=== PATIENT | male | born 1955 | race Caucasian/White ===

== ENCOUNTER 2017-03-16 18:11 | Emergency (ER) | payer BC ==
[~2017-03-16] VITALS: Ht 190.5 cm; Wt 112.2 kg
[~2017-03-16 18:11] MED LIST: DILT120C PO; LISI40TA PO; RIVA1TAB4 PO
[2017-03-16 18:37] VITALS: TEMP 36.6; Ht 190.5 cm; Wt 112.2 kg
[2017-03-16] MEDS ORDERED: SODIUM CHLORIDE 0.9% 1000ML 500 ML IV STA (18:48)
[2017-03-16] MEDS ORDERED: DILTIAZEM BOLUS / DRIP IV STA (18:48)
[2017-03-16] MEDS ORDERED: SODIUM CHLORIDE 0.9% 1000ML 1,000 ML IV STA (18:48)
[2017-03-16] MEDS ORDERED: DILTIAZEM HCL 5 MG/ML 5 ML VIAL IV SCH (19:00)
[2017-03-16] MEDS ORDERED: DILTIAZEM HCL INJ 125 MG in DEXTROSE 5% 100ML IV PRN (19:00)
[2017-03-16 19:12] LABS: BASO % 0.8 %; BASO ABS # 0.05 K/uL (0-0.2); COMPLETE YES; EOS % 5.1 %; HEMATOCRIT 44.2 % (42-52); IG% 0.2 %; LYMPH % 23.2 %; LYMPH ABS # 1.42 K/uL (1.2-3.4); MEAN CELL VOLUME 94.6 fL (80-100); MEAN CORPUSCULAR HEMOGLOBIN 31.9 pg (25-34); MEAN CORPUSCULAR HGB CONC 33.7 g/dl (32-36); MEAN PLATELET VOLUME 8.8 fL (7.4-10.4); MONO % 8.8 %; NEUT % 61.9 %; PLATELET COUNT 295 K/uL (130-400); RED BLOOD COUNT 4.67 M/uL (4.7-6.1); WHITE BLOOD COUNT 6.13 K/uL (4.8-10.8)
--- NOTE | 2017-03-16 19:21 | EMERGENCY ROOM VISIT NOTE ---
History Report prepared by Elias: Cammie Askew Under the Supervision of: Dr. Bismark Mccall M.D. First contact with patient: 18:41 Chief Complaint: TACHYCARDIA Stated Complaint: ATRIAL FLUTTER, RAPID HEARTBEAT History of Present Illness The patient is a 61 year old male who presents to the Emergency Room with complaints of nearly resolved tachycardia that started 45 minutes [employer]. The patient states that he was at home riding a recumbent exercise bike when he started to feel "strange." He looked down at the pulse monitor on the exercise bike and noticed that his heart rate was very high. He immediately got off of the bike and took 120 mg of diltiazem. He denies chest pain or shortness of breath. He states that he did feel more fatigued during his workout than he usually does. The patient states that he has a history of atrial flutter, but he has only experienced it once in the past. The patient states that he was evaluated for atrial flutter in the ED 1 year ago and he saw Dr. Belcher - Cardiology while he was in the hospital. Dr. Belcher prescribed him the diltiazem and told him to take it whenever he felt his heart go out of rhythm. The patient does not take diltiazem on a regular basis. The patient was prescribed Xarelto after that hospital visit, but he never filled that prescription. He is not on any blood thinners currently. The patient adds that he experienced hypotension over the weekend which is very abnormal for him. He communicated with his PCP who told him to decrease his lisinopril from 40 mg to 20 mg a day. The patient states that he took an extra 20 mg dose of lisinopril today after he noticed the tachycardia to get him up to his previous dose of 40 mg. The patient also states that at the beginning of the month he started to experience a persistent GI virus. His symptoms from the GI virus have just started to resolve over the last week and the patient's diet is slowly improving from the bland diet that he was on. His states that he has lost 15 lbs over the last 3 weeks. He was diagnosed with shingles on his chest and back 10 days after the GI virus started. He is on Valtrex for shingles. The patient's adds that he has been experiencing back pain but the patient states that it is in the area of his shingles rash. The patient states that he has not had any caffeine or alcohol for the past 3 weeks which is unusual for him. The patient states that he follows with a shell plater at [facility] and is scheduled to have an echocardiogram and a sleep study done there to further evaluate the atrial flutter. 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 He is supposed to receive salvage radiation but they want to control his abnormal rhythm before doing that. Source of History: patient, spouse/significant other () Onset: 45 minutes [employer] Position: chest Quality: other (tachycardia) Timing: resolved Modifying Factors (Relieving): other (diltiazem) Associated Symptoms: No chest pain, No SOB Note: increased fatigue Review of Systems See HPI for pertinent positives & negatives. A total of 10 systems reviewed and were otherwise negative. Past Medical & Surgical Medical Problems: (1) Hypertension (2) Prostate cancer (3) Tachycardia Family History Graves' disease FATHER Hypertension MOTHER Social History Smoking Status: Former Smoker Drug Use: none Marital Status: Housing Status: lives with significant other Occupation Status: employed Current/Historical Medications Scheduled Diltiazem Hcl Coated Beads (Diltiazem Hcl Er), 1 CAP PO DAILY Lisinopril (Zestril), 20 MG PO DAILY Probiotic Product (Get10), 1 CAP PO QAM Tadalafil (Cialis), 20 MG PO UD Valacyclovir (Valtrex), 1 TAB PO TID [Florijan Probiotic], 1 TAB PO QPM [Oregeno Oil], 1 APPLN PO BID Allergies Coded Allergies: Iodinated Contrast Media (Verified Allergy, Unknown, ., 03/24/16) Physical Exam Vital Signs Date Time Temp Pulse Resp B/P (MAP) Pulse Ox O2 Delivery O2 Flow Rate FiO2 03/16/17 20:01 140/88 03/16/17 20:00 61 25 95 03/16/17 19:55 135/85 03/16/17 19:41 61 17 94 03/16/17 19:32 119/60 03/16/17 19:22 122/83 03/16/17 19:11 93 18 03/16/17 19:09 93 03/16/17 18:37 36.6 89 16 137/78 96 Room Air Physical Exam GENERAL: Patient is in no acute distress. HEENT: No acute trauma, normocephalic atraumatic, mucous membranes moist, no nasal congestion, no scleral icterus. NECK: No stridor, no adenopathy, no meningismus, trachea is midline. LUNGS: Clear to auscultation bilaterally, no wheeze, no rhonchi, breath sounds equal. HEART: Irregular rhythm with a mildly fast rate, no murmurs. ABDOMEN: Soft, nontender, bowel sounds positive, no hernias, no peritonitis. EXTREMITIES: No cyanosis or edema, full range of motion of all the joints without pain or difficulty, no signs for acute trauma. NEUROLOGIC: Oriented x 3, no acute motor or sensory deficits, no focal weakness. SKIN: No jaundice, shingles rash noted to left chest. Medical Decision & Procedures ER Provider Diagnostic Interpretation: Radiology results as stated below per my review and radiologist interpretation: CHEST ONE VIEW PORTABLE FINDINGS: The bones soft tissues and hemidiaphragms are normal. The cardiomediastinal silhouette is normal. The lungs are clear. The pulmonary vasculature is normal. Minimal chronic atelectatic change left base IMPRESSION: Negative chest. The above report was generated using voice recognition software. It may contain grammatical, syntax or spelling errors. Electronically signed by: Elier Sampson M.D. 03/16/2017 7:21 PM Dictated Date/Time: 03/16/2017 7:21 PM Laboratory Results 03/16/17 19:00 Red Blood Count 4.67, Mean Corpuscular Volume 94.6, Mean Corpuscular Hemoglobin 31.9, Mean Corpuscular Hemoglobin Concent 33.7, Mean Platelet Volume 8.8, Neutrophils (%) (Auto) 61.9, Lymphocytes (%) (Auto) 23.2, Monocytes (%) (Auto) 8.8, Eosinophils (%) (Auto) 5.1, Basophils (%) (Auto) 0.8, Neutrophils # (Auto) 3.80, Lymphocytes # (Auto) 1.42, Monocytes # (Auto) 0.54, Eosinophils # (Auto) 0.31, Basophils # (Auto) 0.05 03/16/17 19:00 Test 03/16/17 19:00 White Blood Count 6.13 K/uL (4.8-10.8) Red Blood Count 4.67 M/uL (4.7-6.1) Hemoglobin 14.9 g/dL (14.0-18.0) Hematocrit 44.2 % (42-52) Mean Corpuscular Volume 94.6 fL (80-100) Mean Corpuscular Hemoglobin 31.9 pg (25-34) Mean Corpuscular Hemoglobin Concent 33.7 g/dl (32-36) Platelet Count 295 K/uL (130-400) Mean Platelet Volume 8.8 fL (7.4-10.4) Neutrophils (%) (Auto) 61.9 % Lymphocytes (%) (Auto) 23.2 % Monocytes (%) (Auto) 8.8 % Eosinophils (%) (Auto) 5.1 % Basophils (%) (Auto) 0.8 % Neutrophils # (Auto) 3.80 K/uL (1.4-6.5) Lymphocytes # (Auto) 1.42 K/uL (1.2-3.4) Monocytes # (Auto) 0.54 K/uL (0.11-0.59) Eosinophils # (Auto) 0.31 K/uL (0-0.5) Basophils # (Auto) 0.05 K/uL (0-0.2) RDW Standard Deviation 44.7 fL (36.4-46.3) RDW Coefficient of Variation 13.1 % (11.5-14.5) Immature Granulocyte % (Auto) 0.2 % Immature Granulocyte # (Auto) 0.01 K/uL (0.00-0.02) Anion Gap 5.0 mmol/L (3-11) Est Creatinine Clear Calc Drug Dose 109.2 ml/min Estimated GFR () 98.5 Estimated GFR (Non- 85.0 BUN/Creatinine Ratio 14.6 (10-20) Calcium Level 8.4 mg/dl (8.5-10.1) Magnesium Level 2.0 mg/dl (1.8-2.4) Total Bilirubin 0.3 mg/dl (0.2-1) Aspartate Amino Transf (AST/SGOT) 16 U/L (15-37) Alanine Aminotransferase (ALT/SGPT) 38 U/L (12-78) Alkaline Phosphatase 74 U/L (45-117) Troponin I 0.016 ng/ml (0-0.045) Total Protein 6.3 gm/dl (6.4-8.2) Albumin 3.2 gm/dl (3.4-5.0) Globulin 3.1 gm/dl (2.5-4.0) Albumin/Globulin Ratio 1.0 (0.9-2) Thyroid Stimulating Hormone (TSH) 2.280 uIu/ml (0.300-4.500) Laboratory results reviewed by me. Medications Administered Medications (Trade) Dose Ordered Sig/Enmanuel Route Start Time Stop Time Status Last Admin Dose Admin Sodium Chloride 500 ml @ 999 mls/hr Q31M STAT IV 03/16/17 18:48 03/16/17 19:18 DC 03/16/17 19:16 999 MLS/HR Sodium Chloride 1,000 ml @ 200 mls/hr Q5H STAT IV 03/16/17 18:48 03/16/17 23:47 03/16/17 19:16 200 MLS/HR Diltiazem HCl (Cardizem Bolus / Drip) 1 ea NOW STAT IV 03/16/17 18:48 03/16/17 18:55 DC 03/16/17 18:48 1 EA Diltiazem HCl (Cardizem Inj) 5 mg TODAY@1900 IV 03/16/17 19:00 03/16/17 19:03 DC 03/16/17 19:19 5 MG Diltiazem HCl 125 mg/Dextrose 125 ml @ 5 mls/hr Q24H PRN IV 03/16/17 19:00 04/15/17 18:59 03/16/17 19:18 5 MLS/HR ECG Indication: tachycardia Rate (beats per minute): 87 Rhythm: atrial fibrillation Findings: nonspecific-ST abn (diffuse), PVC, other (LVH) Change: Second EKG on 03/16/2017 revealed sinus bradycardia, rate of 59, LVH, no acute ischemic changes, no dysrhythmia. ED Course 1841: The patient was evaluated in room C10. A complete history and physical exam was performed. 1847: Ordered Diltiazem HCl 1 ea IV, Sodium Chloride 1000 ml @ 200 mls/hr IV, Sodium Chloride 500 ml @ 999 mls/hr IV 1900: Ordered Diltiazem HCl 125 ml @ 5 mls/hr Protocol IV, Diltiazem HCl 5 mg IV 1956: I reassessed the patient. He is now in a sinus rhythm and feels fine. I am going to repeat an EKG to verify that his rhythm has improved and consult cardiology. 2001: Discussed the patient's case with Dr. Sunshine Foote. He is in agreement with discharging the patient. He is able to see the patient this week in clinic. 2006: Reevaluated the patient. Discussed results and discharge instructions: he verbalized understanding and agreement. The patient is ready for discharge. Medical Decision Differential diagnoses considered include rapid atrial fibrillation or atrial flutter, SVT, electrolyte imbalance, dehydration, anemia, infection, AL. There is no leukocytosis or concerning anemia. No significant electrolyte abnormality, kidney failure, hepatitis. The patient appears to be in a euthyroid state. Chest x-ray does not show CHF or pneumonia. There was no significant mediastinal widening. EKG showed a rapid A. fib, no acute ischemia. Cardiac enzyme testing times one is not consistent with acute cardiac injury. The patient received a 500 mL saline bolus. He was given an IV bolus of diltiazem and then placed on a drip. Within a short time, he did convert to a sinus rhythm as confirmed by repeat EKG. The diltiazem was stopped. I discussed the case with cardiology. The patient is being discharged with outpatient follow-up this week. He will not change his medications. The patient can return here for any return of symptoms. The rapid A. fib has resolved. Medication Reconcilliation Current Medication List: was personally reviewed by me Blood Pressure Screening Patient's blood pressure: Elevated blood pressure Blood pressure disposition: Elevated BP felt to be situational Consults Time Called: 1957 Consulting Physician: Dr. Sunshine Foote Returned Call: 2001 Discussed the patient's case with Dr. Sunshine Foote. He is in agreement with discharging the patient. He is able to see the patient this week in clinic. Impression Primary Impression: Rapid atrial fibrillation Scribe Attestation The scribe's documentation has been prepared under my direction and personally reviewed by me in its entirety. I confirm that the note above accurately reflects all work, treatment, procedures, and medical decision making performed by me. Departure Information Dispostion Home / Self-Care Referrals No Doctor, Assigned (PCP) Forms HOME CARE DOCUMENTATION FORM, IMPORTANT VISIT INFORMATION, WORK / SCHOOL INSTRUCTIONS Patient Instructions My [facility] Additional Instructions call to set up appt with cardiology this week use the Diltiazem for rapid heart rate as before return if worsening lab testing today was all ok
--- NOTE | 2017-03-16 19:22 | DIAGNOSTIC IMAGING REPORT ---
CHEST ONE VIEW PORTABLE CLINICAL HISTORY: EVALUATE ALTERED MENTAL STATUS/WEAKNESS COMPARISON STUDY: No previous studies for comparison. FINDINGS: The bones soft tissues and hemidiaphragms are normal. The cardiomediastinal silhouette is normal. The lungs are clear. The pulmonary vasculature is normal. Minimal chronic atelectatic change left base IMPRESSION: Negative chest. The above report was generated using voice recognition software. It may contain grammatical, syntax or spelling errors. Electronically signed by: Elier Sampson M.D. 03/16/2017 7:21 PM Dictated Date/Time: 03/16/2017 7:21 PM
[2017-03-16] MEDS ORDERED: [UNRECOGNIZED DRUG - OTHER] PO (19:36)
[2017-03-16] MEDS ORDERED: VALA500T60 PO (19:36)
[2017-03-16] MEDS ORDERED: [UNRECOGNIZED DRUG - OTHER] PO (19:36)
[2017-03-16] MEDS ORDERED: PROBCAP PO (19:36)
[2017-03-16 19:39] LABS: BUN/CREATININE RATIO 14.6 (10-20); CALCIUM 8.4 mg/dl (8.5-10.1); CREATININE 0.96 mg/dl (0.60-1.40); POTASSIUM 4.4 mmol/L (3.5-5.1)
[2017-03-16 19:50] LABS: THYROID STIMULATING HORMONE 2.28 uIu/ml (0.300-4.500)
[2017-03-16 20:00] VITALS: PULSE 61; O2SAT 95
[2017-03-16 20:01] VITALS: BP 140/88
[2017-03-16] MEDS ORDERED: TADA20TA PO (22:49)
== END 2017-03-16 20:30 | disposition home or self-care (01) ==
LOC: C.EDB 18:13 → C.EDC 20:30
DX: I48.91 Unspecified atrial fibrillation (principal); I10 Essential (primary) hypertension; Z85.46 Personal history of malignant neoplasm of prostate; Z83.49 Family history of other endocrine, nutritional and metabolic diseases; Z82.49 Family history of ischemic heart disease and other diseases of the circulatory system; Z87.891 Personal history of nicotine dependence; Z79.899 Other long term (current) drug therapy

== ENCOUNTER 2020-04-25 11:43 | Observation (INO) ==
[2020-04-25 12:26] LABS: Basophils # (auto) 0.02 K/uL (0-0.2); Basophils % (auto) 0.4 %; Eosinophils # (auto) 0.19 K/uL (0-0.5); Eosinophils % (auto) 3.5 %; Hematocrit (blood only) 45.3 % (42-52); Hemoglobin 15.7 g/dL (14.0-18.0); Lymphocytes % (auto) 27.6 %; Mean Corpuscular Hemoglobin 34.1 pg (25-34); Mean Corpuscular Hgb Conc 34.7 g/dL (32-36); Mean Corpuscular Volume 98.5 fL (80-100); Mean Platelet Volume 9.6 fL (7.4-10.4); Monocytes # (auto) 0.53 K/uL (0.11-0.59); Monocytes % (auto) 9.7 %; Neutrophils % (auto) 58.8 %; Platelet Count 222 K/uL (130-400); RDW Coefficient of Variation 13.3 % (11.5-14.5); RDW Standard Deviation 47.9 fL (36.4-46.3); White Blood Count 5.44 K/uL (4.8-10.8)
[2020-04-25 12:38] LABS: INR 1.4 (0.9-1.1); Partial Thromboplastin Ratio 1.3; Partial Thromboplastin Time 34.9 Seconds (21.0-31.0); Prothrombin Time 14.1 Seconds (9.0-12.0)
[2020-04-25 12:48] LABS: Albumin Level 3.8 gm/dl (3.4-5.0); BUN Creatinine Ratio 14.2 (10-20); Calcium 8.4 mg/dl (8.5-10.1); Creatinine Clr Calc Pharmacy 105.9 ml/min; Est GFR (African American) 107.2; Est GFR (Non-African American) 92.5; Potassium 4.1 mmol/L (3.5-5.1)
[2020-04-25] MEDS ORDERED: STAT IV Infusion **Titration per Protocol STA (12:48)
[2020-04-25] MEDS ORDERED: dilTIAZem HCl 5 MG/ML 5 ML VIAL IV STA (12:48)
--- NOTE | 2020-04-25 12:48 | Emergency Department Note ---
Impression & Plan Atrial fibrillation with rapid ventricular response, Hypertension, Heart palpitations ED Provider Note NAME: CAROL BAIG AGE: 64 SEX: M : 1955 ARRIVES VIA: Walk-In INFORMANT: Patient ED PROVIDER(S): Saul Snow DO CHIEF COMPLAINT: Afib RVR HPI: Patient is a 64-year-old male with a past medical history of prostate cancer, hypertension and A. fib/flutter. He notes he has had about 3-4 episodes of A. fib a flutter before in the past. He notes he woke up this morning around 1 in the morning and noticed that his heart was racing. Last night before going to bed he was not in A. fib. He denies any chest pain or shortness of breath. No nausea, vomiting or diarrhea. No dysuria, urgency or frequency. No other exacerbating or remitting factors. He does take rivaroxaban has not missed any doses. He was in contact with his para educator who recommended him taking diltiazem and he took 240 mg ER. Heart rate did not increase until after 9 AM. ROS: See above HPI for pertinent positives & negatives. A total of 10 systems reviewed and were otherwise negative. PAST MEDICAL HISTORY:See Below PAST SURGICAL HISTORY:See Below FAMILY HISTORY:See Below SOCIAL HISTORY:See Below HOME MEDICATIONS:See Below ALLERGIES:See Below VITALS:See Below PHYSICAL EXAMINATION: GENERAL: Sitting up in bed, alert, well appearing, well nourished, no distress, non-toxic EYE EXAM: normal conjunctiva. OROPHARYNX: no exudate, no erythema, lips, buccal mucosa, and tongue normal and mucous membranes are moist NECK: supple, no nuchal rigidity, no adenopathy, non-tender LUNGS: Clear to auscultation. Normal chest wall mechanics HEART: A. fib RVR, S1 normal and S2 normal ABDOMEN: abdomen soft, non-tender, normo-active bowel sounds, no masses, no rebound or guarding. BACK: Back is symmetrical on inspection and there is no deformity, no midline tenderness, no CVA tenderness. SKIN: no rashes and no bruising UPPER EXTREMITIES: upper extremities are grossly normal. LOWER EXTREMITIES: No pitting edema. NEURO EXAM: Normal sensorium, cranial nerves II-XII grossly intact, normal speech, no gross weakness of arms, no gross weakness of legs. MEDICAL DECISION MAKING: Patient is a 64-year-old male who presents the ER for palpitations. Past medical history includes A. fib. He notes that he feels as though he is in it now. He has been shocked once before. He did take 240 mg of Cardizem ER earlier today in discussion with his para educator. Labs show no significant leukocytosis or anemia. INR was slightly elevated at 1.4 as he has not missed any doses of his Eliquis. BMP with an elevated chloride. LFTs bilirubin and troponin was negative. Lipase was unremarkable. Chest x-ray was unremarkable. Discussed with the hospitalist for admission after placement was placed on a Cardizem drip and Cardizem bolus. They consulted cardiology. His heart rate trended down to the 50s to 60s. Cardiology recommended cardioversion after they evaluated him at bedside. I sedated the patient and cardiology shocked the patient twice. Patient Reverted into a sinus rhythm both times and then converted back to A. fib. After this sedation was stopped and patient woke back up. Cardiology decided to admit the patient to the hospitalist and further work-up. Turned off the Cardizem drip prior to shocking the patient and will hold that drip until his heart rate trends back up. Triage Nursing notes reviewed. Prior medical records reviewed Vital Signs: reviewed and remarkable for Tachycardic Differential diagnosis: Differential diagnoses includes but is not limited to acute coronary syndrome, myocardial infarction, pericarditis, pulmonary embolus, aortic dissection, pneum onia, pneumothorax, musculoskeletal, shingles, esophageal. ER treatment provided: See below Diagnostics interpreted by me: ECG: A. fib RVR rate of 129 Normal axis Prolonged QTC T WI in lead III Cardiac Monitoring: An order was placed for continuous cardiac monitoring. The monitor shows a rate of 130 with sinus rhythm. Laboratory studies: As stated above and show below. Imaging studies: Audible AP upright 1 view of the chest shows no focal infiltrate or pneumothorax Consultation(s): Discussed with Gallito Rivas for admission Discussed with Derrick Corbin from cardiology ED COURSE: Procedures: Procedural Sedation Indication Cardioversion. Total time: 11 minutes. Written consent was obtained after the risks and benefits were explained to the Patient, including, but not limited to aspiration, allergic reaction, breathing difficulties, cardiac complications, vomiting, pain, event recall, bleeding, and/or infection. Pre-sedation examination and paperwork completed. The patient was on 100% oxygen via NRB prior to the procedure. Continous end tidal CO2 monitoring, pulse oximetry, and cardiac monitoring were utilized. Suction, airway equipment, medications, respiratory equipment, and appropriate personnel were prepared prior to the initiation of the procedure. A time out was taken. Sedation was achieved utilizing 180 mg of propofol by titrating up. After I observed the patient had reached the appropriate level of sedation the main procedure was performed without complication. Sedation was discontinued and the monitoring continued. The patient recovered quickly from the effects of the medication without complication or adverse event. Critical Care: I have personally spent 55 minutes of critical care time in the direct management of this patient. This includes bedside care, interpretation of diagnostic studies, and testing, discussion with consultants, patient, and family members, and other required patient management activities. This 55 minutes is in excess of all separately billable procedures. Past Med/Surg History Social History Smoking Status: Former smoker Preferred Language: Liberian Feels Safe at Home: Yes Allergies Allergies Allergy/AdvReac Type Severity Reaction Status Date / Time Iodinated Contrast Media Allergy Unknown . Verified 04/25/20 14:18 Home Meds Home Medications Medication Instructions Recorded Confirmed lisinopril 20 mg PO QAM 04/25/20 04/25/20 rivaroxaban [Xarelto] 20 mg PO QAM 04/25/20 04/25/20 rosuvastatin 40 mg PO QAM 04/25/20 04/25/20 tadalafil 20 mg PO UD PRN 04/25/20 04/25/20 Results & Data (ED) Vital Signs Vital Signs - 24 hr 04/25/20 12:03 04/25/20 12:34 04/25/20 12:57 Temperature 37 C Temperature Source Oral Pulse Rate 76 100 H Pulse Rate [Apical] Pulse Rate from SpO2 Sensor Pulse Rhythm Regular Pulse Rhythm [Apical] Pulse Strength Normal Pulse Strength [Apical] Respiratory Rate 20 16 Respiratory Effort / Characteristics Non-Labored Spontaneous Respiratory Depth Normal Respiratory Pattern Regular Blood Pressure 172/118 H 192/114 H Blood Pressure [Right Arm] Blood Pressure Mean 136 140 Blood Pressure Mean [Right Arm] Blood Pressure Position Sitting Blood Pressure Position [Right Arm] Pulse Oximetry 96 96 96 Oxygen Delivery Method Room Air Room Air Oxygen Flow Rate Sepsis Recent Fever Within 48 Hours No Sepsis New/Unexplained Change in Mental Status No Sepsis Action Taken by Nursing No Action Required 04/25/20 12:58 04/25/20 13:00 04/25/20 13:01 Temperature Temperature Source Pulse Rate 108 H 116 H 113 H Pulse Rate [Apical] Pulse Rate from SpO2 Sensor 93 H 93 H 84 Pulse Rhythm Pulse Rhythm [Apical] Pulse Strength Pulse Strength [Apical] Respiratory Rate 20 24 17 Respiratory Effort / Characteristics Respiratory Depth Respiratory Pattern Blood Pressure 192/114 H 152/117 H Blood Pressure [Right Arm] Blood Pressure Mean 130 134 Blood Pressure Mean [Right Arm] Blood Pressure Position Blood Pressure Position [Right Arm] Pulse Oximetry 95 96 Oxygen Delivery Method Oxygen Flow Rate Sepsis Recent Fever Within 48 Hours Sepsis New/Unexplained Change in Mental Status Sepsis Action Taken by Nursing 04/25/20 13:30 04/25/20 13:31 04/25/20 14:00 Temperature Temperature Source Pulse Rate 75 75 76 Pulse Rate [Apical] Pulse Rate from SpO2 Sensor 74 74 76 Pulse Rhythm Pulse Rhythm [Apical] Pulse Strength Pulse Strength [Apical] Respiratory Rate 21 18 21 Respiratory Effort / Characteristics Respiratory Depth Respiratory Pattern Blood Pressure 161/115 H 163/111 H Blood Pressure [Right Arm] Blood Pressure Mean 125 123 Blood Pressure Mean [Right Arm] Blood Pressure Position Blood Pressure Position [Right Arm] Pulse Oximetry 95 95 94 Oxygen Delivery Method Room Air Room Air Oxygen Flow Rate Sepsis Recent Fever Within 48 Hours Sepsis New/Unexplained Change in Mental Status Sepsis Action Taken by Nursing 04/25/20 14:01 04/25/20 14:30 04/25/20 14:31 Temperature Temperature Source Pulse Rate 76 75 75 Pulse Rate [Apical] Pulse Rate from SpO2 Sensor 76 75 75 Pulse Rhythm Pulse Rhythm [Apical] Pulse Strength Pulse Strength [Apical] Respiratory Rate 19 23 23 Respiratory Effort / Characteristics Respiratory Depth Respiratory Pattern Blood Pressure 162/113 H Blood Pressure [Right Arm] Blood Pressure Mean 125 Blood Pressure Mean [Right Arm] Blood Pressure Position Blood Pressure Position [Right Arm] Pulse Oximetry 94 95 96 Oxygen Delivery Method Oxygen Flow Rate Sepsis Recent Fever Within 48 Hours Sepsis New/Unexplained Change in Mental Status Sepsis Action Taken by Nursing 04/25/20 15:00 04/25/20 15:01 04/25/20 15:07 Temperature Temperature Source Pulse Rate 76 79 75 Pulse Rate [Apical] 74 Pulse Rate from SpO2 Sensor 76 75 74 Pulse Rhythm Pulse Rhythm [Apical] Regular Pulse Strength Pulse Strength [Apical] Normal Respiratory Rate 15 24 21 Respiratory Effort / Characteristics Non-Labored Spontaneous Respiratory Depth Normal Respiratory Pattern Regular Blood Pressure 186/111 H 168/104 H Blood Pressure [Right Arm] 168/104 H Blood Pressure Mean 142 115 Blood Pressure Mean [Right Arm] 125 Blood Pressure Position Blood Pressure Position [Right Arm] Lying Pulse Oximetry 96 96 99 Oxygen Delivery Method Non-rebreather Oxygen Flow Rate 13 Sepsis Recent Fever Within 48 Hours Sepsis New/Unexplained Change in Mental Status Sepsis Action Taken by Nursing 04/25/20 15:30 Temperature Temperature Source Pulse Rate Pulse Rate [Apical] 54 L Pulse Rate from SpO2 Sensor Pulse Rhythm Pulse Rhythm [Apical] Irregular Pulse Strength Pulse Strength [Apical] Normal Respiratory Rate 18 Respiratory Effort / Characteristics Non-Labored Spontaneous Respiratory Depth Normal Respiratory Pattern Regular Blood Pressure Blood Pressure [Right Arm] 126/95 Blood Pressure Mean Blood Pressure Mean [Right Arm] 105 Blood Pressure Position Blood Pressure Position [Right Arm] Lying Pulse Oximetry 95 Oxygen Delivery Method Room Air Oxygen Flow Rate Sepsis Recent Fever Within 48 Hours Sepsis New/Unexplained Change in Mental Status Sepsis Action Taken by Nursing Laboratory Data Result diagrams: 04/25/20 12:16 04/25/20 12:16 Lab Results 04/25/20 04/25/20 04/25/20 Range/Units 12:16 12:16 12:16 WBC 5.44 (4.8-10.8) K/uL RBC 4.60 L (4.7-6.1) M/uL Hgb 15.7 (14.0-18.0) g/dL Hct 45.3 (42-52) % MCV 98.5 (80-100) fL MCH 34.1 H (25-34) pg MCHC 34.7 (32-36) g/dL RDW Std Deviation 47.9 H (36.4-46.3) fL RDW Coeff of Michi 13.3 (11.5-14.5) % Plt Count 222 (130-400) K/uL MPV 9.6 (7.4-10.4) fL Immature Gran % (Auto) 0.0 % Neut % (Auto) 58.8 % Lymph % (Auto) 27.6 % [place] % (Auto) 9.7 % Eos % (Auto) 3.5 % Baso % (Auto) 0.4 % Neut # (Auto) 3.20 (1.4-6.5) K/uL Lymph # (Auto) 1.50 (1.2-3.4) K/uL [place] # (Auto) 0.53 (0.11-0.59) K/uL Eos # (Auto) 0.19 (0-0.5) K/uL Baso # (Auto) 0.02 (0-0.2) K/uL Immature Gran # (Auto) 0.00 (0.00-0.02) K/uL PT 14.1 H (9.0-12.0) Seconds INR 1.4 H (0.9-1.1) APTT 34.9 H (21.0-31.0) Seconds PTT Ratio 1.3 Sodium 140 (136-145) mmol/L Potassium 4.1 (3.5-5.1) mmol/L Chloride 108 H (98-107) mmol/L Carbon Dioxide 26 (21-32) mmol/L Anion Gap 6.0 (3-11) BUN 12 (7-18) mg/dl Creatinine 0.84 (0.6-1.4) mg/dl Est Cr Clr Drug Dosing 105.9 ml/min Est GFR ( Amer) 107.2 Est GFR (Non-Af Amer) 92.5 BUN/Creatinine Ratio 14.2 (10-20) Glucose 96 (70-99) mg/dl Calcium 8.4 L (8.5-10.1) mg/dl Total Bilirubin 0.8 (0.2-1) mg/dl AST 17 (15-37) U/L ALT 22 (12-78) U/L Alkaline Phosphatase 67 (45-117) U/L Troponin I 0.018 (0-0.045) ng/ml Total Protein 7.2 (6.4-8.2) gm/dl Albumin 3.8 (3.4-5.0) gm/dl Globulin 3.4 (2.5-4.0) gm/dl Albumin/Globulin Ratio 1.1 (0.9-2) Lipase 108 (73-393) U/L Administered Medications Diltiazem HCl 125 mg/ Dextrose 125 mls @ 5 mls/hr IV .Q24H [facility]; Protocol Stop: 05/25/20 12:59 Last Admin: 04/25/20 13:12 Dose: 5 mg/hr, 5 mls/hr Documented by: [id number] Cosigned by: [id number] Discontinued Medications Diltiazem HCl (Diltiazem Hcl 5 Mg/Ml 5 Ml Vial) 10 mg IV NOW STA Stop: 04/25/20 12:49 Last Admin: 04/25/20 13:11 Dose: 10 mg Documented by: [id number] Cosigned by: [id number] Miscellaneous (Stat Iv Infusion Titration Per Protocol) 1 ea N/A NOW STA Stop: 04/25/20 12:49 Last Admin: 04/25/20 13:27 Dose: Not Given Documented by: [id number] Propofol (Propofol Iv Emulsion 10 Mg/Ml 20 Ml Vial) Confirm Administered Dose 200 mg IV .STK-MED ONE Stop: 04/25/20 15:05 Last Admin: 04/25/20 15:46 Dose: 180 mg Documented by: [id number] Cosigned by: [id number] Discharge Plan Visit Data Chief Complaint: Arrhythmia/Palpitations Stated Complaint: A FIB - ELEVATED PULSE IRREGULAR HEARTBEAN ED Provider: Saul Snow Discharge Problem: Atrial fibrillation with rapid ventricular response, Hypertension, Heart palpitations Forms Stand Alone Forms: [facility] Prescriptions Prescriptions: No Action lisinopril 20 mg tablet 20 mg PO QAM RF: 0 rosuvastatin 40 mg tablet 40 mg PO QAM RF: 0 tadalafil 20 mg tablet 20 mg PO UD PRN (Reason: Erectile Dysfunction) RF: 0 Xarelto 20 mg tablet 20 mg PO QAM RF: 0 Discharge Problem: Hypertension Qualifiers: Hypertension type: unspecified Qualified Code(s): I10 - Essential (primary) hypertension
[2020-04-25 12:53] LABS: Albumin Globulin Ratio 1.1 (0.9-2); Bilirubin,Total 0.8 mg/dl (0.2-1); Globulin 3.4 gm/dl (2.5-4.0); Total Protein 7.2 gm/dl (6.4-8.2); Troponin I 0.018 ng/ml (0-0.045)
[2020-04-25] MEDS ORDERED: dilTIAZem HCL 125 MG in DEXTROSE 5% 100 ML IV SCH (13:00)
--- NOTE | 2020-04-25 13:25 | XRay Report ---
SINGLE VIEW CHEST CLINICAL HISTORY: Atypical chest pain. FINDINGS: An AP, portable, upright chest radiograph is compared to study dated 03/16/2017. The examina tion is mildly degraded by portable technique and patient rotation. The heart is mildly enlarged. The pulmonary vasculature is noncongested. Minimal atelectasis is noted at the lung bases. The lungs and pleural spaces are otherwise clear. No pneumothorax is seen. The bony thorax is grossly intact. IMPRESSION: Mild cardiac enlargement with no acute cardiopulmonary abnormality. ACT 112: Negative or not required by law. Electronically signed by: Bismark Bravo M.D. 04/25/2020 1:24 PM
--- NOTE | 2020-04-25 13:52 | Electrocardiogram Report ---
Test Reason : Blood Pressure : / mmHG Vent. Rate : 129 BPM Atrial Rate : 293 BPM P-R Int : 000 ms QRS Dur : 090 ms QT Int : 382 ms P-R-T Axes : 206 -04 209 degrees QTc Int : 559 ms Atrial flutter with variable A-V block Nonspecific ST and T wave abnormality Abnormal ECG When compared with ECG of 16-MAR-2017 20:01, Atrial flutter has replaced Sinus rhythm Vent. rate has increased BY [address] and T wave abnormality now present Confirmed by Chano Corbin ([id number]) on 04/25/2020 1:52:31 PM Referred By: Confirmed By:Chano Corbin
--- NOTE | 2020-04-25 14:23 | History & Physical Report ---
Date of Service April 25, 2020 Assessment & Plan (1) Atrial fibrillation with rapid ventricular response: Patient is in atrial flutter in ER where he had attempted DC cardioversion with low energy. This resulted in atrial fib conversion. Patient then had a higher energy conversion of atrial fib which resulted in a brief run of sinus rhythm and then returned to atrial fib. Patient however has good rate control in the 50s and 60s he remains on Xarelto no other active rate controlling agents are being used. The patient did take 240 mg of diltiazem extended release in the morning of admission. Dr. Corbin's note the patient could go home if he is rate controlled in the morning as long as he is on atrial flutter. If he is in atrial flutter he will need to stay. If he is in sinus rhythm or atrial fib and is high blood pressure consideration of continuing diltiazem on a daily basis could be undertaken if his. If his blood pressure is low or normal and he is in atrial fib consideration of a beta-anna. (2) Hypertension: Patient has been on lisinopril with typically good control of his blood pressure. Lisinopril was continued at this time Patient remains on rosuvastatin for secondary disease prevention of cholesterol Management (3) Prostate cancer: (4) DVT prophylaxis: Remains on Xarelto History of Present Illness Primary Care Provider: NICKOLAS FLORES 64-year-old male with a past medical history of prostate cancer, hypertension and A. fib/flutter. He notes he has had about 3-4 episodes of A. fib a flutter before in the past. He notes he woke up this morning around 1 in the morning and noticed that his heart was racing. Last night before going to bed he was no t in A. fib. He denies any chest pain or shortness of breath. No nausea vomiting or diarrhea. No dysuria urgency or frequency. No other exacerbating or remitting factors. He does take rivaroxaban has not missed any doses. He was in contact with his cooling tower technician who recommended him taking diltiazem and he took 240 mg ER. Patient had no relief with the Cardizem 240 presented to the ER with atrial flutter rapid ventricular response. Patient was placed on a diltiazem drip with some good reduction in his heart rate however remained in a flutter. I personally phoned Dr. Derrick Corbin and over the case with him and the decision was made to attempt to DC cardiovert the patient to resume sinus rhythm since he is chronically anticoagulated have patient go home. However the patient initially converted from flutter to atrial fibrillation and then from atrial fibrillation to sinus briefly but remained in atrial fibrillation with controlled ventricular rate. Because of the variability his heart rate controlled patient was recommended for observation of facility. Diltiazem drip was not continued with his Xarelto was. Patient with PRN metoprolol for elevation of heart rate Dr. Corbin did phone the patient's cooling tower technician and left a message. Per Dr. Corbin's instructions the patient may go home in the morning if heart rate is controlled whether he is in sinus rhythm or not with the exception is that if he returns a flutter that he should stay outside of his heart rate. If the patient has an elevated blood pressure and control heart rate whether sinus or A. fib heart is it may be a good choice to control his blood pressure. If the patient is in A. fib with controlled blood pressure metoprolol may be a better choice. If patient remains in atrial flutter he will likely have to stay for consideration of further antiarrhythmic medication cardiology consultation will be continued Allergies Allergy/AdvReac Type Severity Reaction Status Date / Time Iodinated Contrast Media Allergy Unknown . Verified 04/25/20 14:18 Home Medications Home Medications Medication Instructions Recorded Confirmed Type lisinopril 20 mg PO QAM 04/25/20 04/25/20 History rivaroxaban [Xarelto] 20 mg PO QAM 04/25/20 04/25/20 History rosuvastatin 40 mg PO QAM 04/25/20 04/25/20 History tadalafil 20 mg PO UD PRN 04/25/20 04/25/20 History Past Med/Surg History Social History Smoking Status: Former smoker Preferred Language: Cook Islander Feels Safe at Home: Yes Review of Systems Review of Systems: Mild distress and fatigue no headache, blurry or double vision no speech or swallowing issues no chest pain, patient has a sensation of palpitations no shortness of breath, cough or wheezes no abdominal pain, nausea or vomiting, diarrhea or constipation no dysuria, hematuria or frequency no focal joint pain or swelling no back pain, CVA tenderness or radicular pain no bruising, bleeding or rashes no focal signs of weakness or numbness or altered sensation Patient gets anxiety when he has his atrial flutter Physical Exam Physical Exam: The patient appeared well nourished and normally developed. Vital signs as documented. Head exam is normocephalic atraumatic no scleral icterus Neck is without JVD, thyromegaly, or carotid bruits. Lungs are clear to auscultation, no focal loss of breath sounds Cardiac exam, tachycardic and regular no murmurs are heard Abdominal exam reveals normal bowel sounds, soft non tender, no masses Extremities are nonedematous and both pedal pulses are normal. Neurologic exam is alert and oriented, no focal loss of strength or sensation Skin is without bruises or rashes Psychologically is without concerns for anxiety or depression. Results & Data Results & Data ([facility]) Vital Signs (Past 12 Hours) Vital Signs Temp Pulse Resp BP Pulse Ox 04/25/20 14:01 76 19 94 04/25/20 14:00 76 21 163/111 H 94 04/25/20 13:31 75 18 95 04/25/20 13:30 75 21 161/115 H 95 04/25/20 13:01 113 H 17 96 04/25/20 13:00 116 H 24 152/117 H 04/25/20 12:58 108 H 20 192/114 H 95 04/25/20 12:57 96 04/25/20 12:34 100 H 16 192/114 H 96 04/25/20 12:03 98.6 F 76 20 172/118 H 96 PG Care Time/CCT Total # of Minutes Spent Total Time Spent with Patient: Total time spent is greater than 50% in coordinat ion of care (as documented) at patient's floor/unit and/or counseling patient: Coding Level of Care Code 03646 OBS Care - Level 3 Diagnoses Atrial fibrillation with rapid ventricular response I48.91 Hypertension I10 Hypertension type: unspecified Prostate cancer C61 DVT prophylaxis Z29.9 (1) Hypertension Hypertension type: unspecified Qualified Code(s): I10 - Essential (primary) hypertension
[2020-04-25] MEDS ORDERED: PROPOFOL IV EMULSION 10 MG/ML 20 ML VIAL IV ONE (15:04)
--- NOTE | 2020-04-25 16:13 | Emergency Department Note ---
Post Sedation Assessment Vital Signs Temp Pulse Pulse Resp BP BP Pulse Ox 04/25/20 16:01 54 L 21 93 04/25/20 16:00 51 L 19 132/87 94 04/25/20 15:31 63 20 92 04/25/20 15:30 61 54 L 21 126/95 126/95 93 04/25/20 15:08 74 13 100 04/25/20 15:07 75 74 21 168/104 H 168/104 H 99 04/25/20 15:01 79 24 96 04/25/20 15:00 76 15 186/111 H 96 04/25/20 14:31 75 23 96 04/25/20 14:30 75 23 162/113 H 95 04/25/20 14:01 76 19 94 04/25/20 14:00 76 21 163/111 H 94 04/25/20 13:31 75 18 95 04/25/20 13:30 75 21 161/115 H 95 04/25/20 13:01 113 H 17 96 04/25/20 13:00 116 H 24 152/117 H 04/25/20 12:58 108 H 20 192/114 H 95 04/25/20 12:57 96 04/25/20 12:34 100 H 16 192/114 H 96 04/25/20 12:03 37 C 76 20 172/118 H 96 Post Sedation Plan On clinical assessment, the patient appears to have tolerated the sedation without complications. Patient is recovering as anticipated. Patient will continue to be monitored by nursing and may be discharged when sedation discharge criteria are met per below protocol. Upon Completions of procedure up to 15 minutes continue every 5 minute vital signs and the P.A.R. score; then discharge to a Phase I or Fast Track to Phase II per the following guidelines: * Discharge Patient to appropriate Phase II area if PAR is 8 or greater or return to pre- procedure baseline. The post - procedure orders will be as directed. * If PAR score is less than 8 or not return to pre-procedure baseline then patient will follow Phase I monitoring till PAR is reached for Phase II. The Phase I may be done in procedure room or may call to secure a Phase I area. * If naloxone or flumazenil are used for reversal, hold in Phase I for continued monitoring from when last reversal dose was given for a minimum of 60 minutes or longer pending the nurse and/or physician discretion of patient condition before discharge to Phase II. Please call the Sedation Physician to re-evaluate and complete post-note for discharge to Phase II area. Do NOT discharge from procedure sedation or Phase 1 until post- sedation evaluation note is complete by procedure /sedation MD Sedation Discharge Instructions to be given to the patient at discharge to home. : Hypertension Qualifiers: Hypertension type: unspecified Qualified Code(s): I10 - Essential (primary) hypertension
--- NOTE | 2020-04-25 16:13 | Emergency Department Note ---
Pre Sedation Assessment Vital Signs Temp Pulse Pulse Resp BP BP Pulse Ox 04/25/20 16:01 54 L 21 93 04/25/20 16:00 51 L 19 132/87 94 04/25/20 15:31 63 20 92 04/25/20 15:30 61 54 L 21 126/95 126/95 93 04/25/20 15:08 74 13 100 04/25/20 15:07 75 74 21 168/104 H 168/104 H 99 04/25/20 15:01 79 24 96 04/25/20 15:00 76 15 186/111 H 96 04/25/20 14:31 75 23 96 04/25/20 14:30 75 23 162/113 H 95 04/25/20 14:01 76 19 94 04/25/20 14:00 76 21 163/111 H 94 04/25/20 13:31 75 18 95 04/25/20 13:30 75 21 161/115 H 95 04/25/20 13:01 113 H 17 96 04/25/20 13:00 116 H 24 152/117 H 04/25/20 12:58 108 H 20 192/114 H 95 04/25/20 12:57 96 04/25/20 12:34 100 H 16 192/114 H 96 04/25/20 12:03 37 C 76 20 172/118 H 96 Pre-Sedation Airway Assessment Smoking Status: Former smoker Notes The planned sedation has been discussed with the patient. Informed Consent was obtained. I have identified the patient, determined the appropriateness of sedation and have assessed the patient immediately prior to the procedure. All medicine(s) and interventions are by my order. : Hypertension Qualifiers: Hypertension type: unspecified Qualified Code(s): I10 - Essential (primary) hypertension
--- NOTE | 2020-04-25 16:33 | Electrocardiogram Report ---
Test Reason : Blood Pressure : / mmHG Vent. Rate : 064 BPM Atrial Rate : 079 BPM P-R Int : 000 ms QRS Dur : 102 ms QT Int : 430 ms P-R-T Axes : 000 -15 001 degrees QTc Int : 443 ms Atrial fibrillation Incomplete right bundle branch block Minimal voltage criteria for LVH, may be normal variant Abnormal ECG When compared with ECG of 25-APR-2020 12:10, Atrial fibrillation has replaced Atrial flutter Vent. rate has decreased BY [address] and T wave abnormality no longer present Confirmed by Chano Corbin ([id number]) on 04/25/2020 4:32:57 PM Referred By: NO PCP Confirmed By:Chano Corbin
[2020-04-25] MEDS ORDERED: oxyCODONE HCL IR 5 MG TAB (IMMEDIATE RELEASE) PO PRN (17:15)
[2020-04-25] MEDS ORDERED: MoRPHine SULFATE 2 MG/ML CARP IV PRN (17:15)
[2020-04-25] MEDS ORDERED: ONDANSETRON INJ 2 MG/ML 2 ML VIAL IV PRN (17:15)
[2020-04-25] MEDS ORDERED: ALUMINUM/MAGNESIUM SUSP 30 ML UDC PO PRN (17:15)
[2020-04-25] MEDS ORDERED: METOPROLOL TARTRATE 1 MG/ML VIAL IV PRN (17:15)
[2020-04-25] MEDS ORDERED: ACETAMINOPHEN 325 MG TAB PO PRN (17:15)
[2020-04-25] MEDS ORDERED: PNEUMOCOCCAL POLYSACCHARIDES 25 MCG/0.5 ML VIAL/SYR IM ONE (17:18)
[2020-04-25] MEDS ORDERED: PNEUMOCOCCAL ADMINISTRATION CHARGE ONE (17:18)
--- NOTE | 2020-04-25 17:23 | Cardiology Consultation ---
Date of Consultation April 25, 2020 Assessment & Plan (1) Atrial flutter: (2) Atrial fibrillation with rapid ventricular response: (3) Hypertension: 64-year-old man followed at [facility] for recurrent atrial dysrhythmias presented with palpitations and found to be in atrial flutter with rapid ventricular response (129 bpm), underwent briefly successful electrical cardioversion before reverting to atrial fibrillation with controlled ventricular response (60 bpm). Since his heart rate has been quite variable would recommend overnight observation on monitor to ensure that he does not develop recurrent tachycardia. He did receive a transient diltiazem intravenous drip which has been since discontinued, but residual drug may be the reason for his currently controlled ventricular rate. He has been chronically anticoagulated with rivaroxaban, continue this. Depending upon his heart rate overnight, could use low-dose oral diltiazem (particularly if hypertensive) or metoprolol (if normotensive or borderline hypotensive) to achieve adequate rate control (heart rate 70-100 bpm). If marked tachycardia, could resume diltiazem infusion. If he continues to feel well and has appropriately controlled heart rate, could be discharged tomorrow on negative chronotropic medication (diltiazem or metoprolol) while continuing rivaroxaban. Longer term management of rate versus rhythm control deferred to his primary cardiology team at [facility]. I did put in a call to his primary fan blade truer, Dr. Stefano Corbin, and will certainly incorporate any recommendations given. No obvious precipitant for his current episode, but would check a magnesium level. At the conclusion of my evaluation, the patient was asymptomatic and hemodynamically stable and was being admitted for overnight observation. History of Present Illness Reason for Consultation: Atrial flutter Requesting Physician: Gallito Foote MD Attending Physician: Gallito Foote MD History of Present Illness 64-year-old man with history of recurrent atrial dysrhythmias, otherwise generally healthy, who developed abrupt onset of palpitations and presented to our emergency department with atrial flutter with rapid ventricular response (129 bpm). He noted a sense of chest subjective palpitations but denied any chest pain or dyspnea. He had an episode of atrial flutter approximately 1 year ago for which he underwent successful electrical cardioversion, he has had no clinical recurrence of atrial tachydysrhythmia until presently. He is followed at [facility] by Dr. Stefano Corbin for his rhythm issues. He has not been on a negative chronotropic or antiarrhythmic, but has been chronically anticoagulated with rivaroxaban. He underwent successful electrical cardioversion here in the emergency department today (see procedure note for details). Unfortunately, his rhythm quickly converted from sinus to atrial fibrillation, after a second shock he again remained in sinus for only a brief period before recurrent atrial fibrillation was noted. He will be admitted overnight to ensure adequate rate control. Post cardioversion, he felt better than upon admission and had good ventricular response (60 bpm range) and no symptoms of subjective palpitations, dyspnea, or chest pain. Allergies Allergy/AdvReac Type Severity Reaction Status Date / Time Iodinated Contrast Media Allergy Unknown . Verified 04/25/20 14:18 Home Medications Home Medications Medication Instructions Recorded Confirmed Type lisinopril 20 mg PO QAM 04/25/20 04/25/20 History rivaroxaban [Xarelto] 20 mg PO QAM 04/25/20 04/25/20 History rosuvastatin 40 mg PO QAM 04/25/20 04/25/20 History tadalafil 20 mg PO UD PRN 04/25/20 04/25/20 History Patient History Medical History (Updated 04/25/20 @ 16:51 by Chano Corbin MD) Dyslipidemia ED (erectile dysfunction) HTN (hypertension) LVH (left ventricular hypertrophy) Paroxysmal atrial flutter Prostate cancer Right maxillary sinusitis Shingles Surgical History (Updated 04/25/20 @ 16:43 by Chnao Corbin MD) S/P appendectomy S/P inguinal hernia repair S/P prostatectomy (2002) Family History (Updated 04/25/20 @ 16:44 by Chano Corbin MD) Cancer Mother Social History Smoking Status: Former smoker Smoking End Date: 1988; Hx Alcohol Use: Yes Alcohol type: wine and hard liquor Hx Substance Use: No Preferred Language: Mauritian Communication Ability: Effective Window Glass Cutter Off Required: No Beliefs That Will Affect Care: None Current Living Situation: Spouse Other Information That Helps Us Care for You: No Feels Safe at Home: Yes Safety Concerns: Feels Safe At This Time Review of Systems Constitutional: no fever, no chills, no fatigue, no weight loss and no weight gain Eyes: no problem reported Ear, Nose, Mouth, Throat: no problem reported Respiratory: no cough and no dyspnea Cardiovascular: as per Subjective / HPI Gastrointestinal: no abdominal pain and no change in stools Musculoskeletal: no myalgia Integumentary: no rash and no new lesions Neurologic: no falls and no syncope Psychiatric: no problem reported Hematologic / Lymphatic: no easy bleeding and no easy bruising Physical Exam Physical Exam: Normal habitus white male in no distress. Initially hypertensive with tachycardia, post cardioversion normotensive with pulse 60 and irregular. Skin: No ecchymoses or generalized lesions. HEENT: Unremarkable. Neck: Jugular venous pulse at the clavicle at 90 degrees, no carotid bruits. Lungs: Mildly decreased breath sounds but clear. No wheezes or crackles. Cardiac: Irregular rhythm with normal S1 and S2, no obvious murmur or gallop. Abdomen: Soft nontender. Extremities: Peripheral pulses intact, no edema. Neurologic: Normal affect and conversation, nonfocal. Results & Data ([facility]) Diagnostic Findings Echocardiogram 2016 showed moderate LVH with normal LV systolic function (EF 60- 65%), mild mitral and tricuspid regurgitation with mild aortic root dilatation. Initial ECG showed atrial flutter with ventricular rate 129 bpm and diffuse nonspecific ST and T wave abnormalities. Post cardioversion ECG showed atrial fibrillation with controlled ventricular response of 64 bpm, voltage criteria for LVH, incomplete right bundle branch block, isoelectric ST segments. Chest x-ray showed mild cardiac enlargement with no cardiopulmonary abnormalities. CBC was unremarkable. Normal electrolytes with potassium of 4.1. Creatinine 0.84. Troponin unremarkable at 0.018. PG Care Time/CCT Total # of Minutes Spent Total Time Spent with Patient: Total time spent is greater than 50% in coordination of care (as documented) at patient's floor/unit and/or counseling patient: Coding Level of Care Code 35749 Inpt Consult Level 4 Diagnoses Atrial flutter I48.92 Atrial fibrillation with rapid ventricular response I48.91 Hypertension I10 Hypertension type: unspecified (1) Hypertension Hypertension type: unspecified Qualified Code(s): I10 - Essential (primary) hypertension
--- NOTE | 2020-04-25 17:27 | Cardioversion ---
Date of Service April 25, 2020 PG Electrical Cardioversion Rp Electrical Cardioversion Report Indication: Atrial flutter with rapid ventricular response Written consent was obtained after the risks and benefits were explained, including but not limited to pain, thermal burn, allergic reaction, aspiration, airway obstruction, laryngospasm, infection, hypotension, embolism, and unfavorable cardiac rhythm. A time out was taken and the correct patient and procedure identified. Sedation was managed by Dr. Snow. -The biphasic defibrillator was set to 50 joules of energy and synched. After confirmation of sedation and "all clear" safety check the synchronized shock was delivered. This resulted in successful conversion of the dysrhythmia back into sinus rhythm for approximately 6 beats, at which time the rhythm converted to atrial fibrillation. -The biphasic defibrillator was set to 100 joules of energy and synched. After confirmation of sedation and "all clear" safety check the synchronized shock was delivered. This resulted in successful conversion of the dysrhythmia into sinus rhythm again for approximately 6 beats, at which time the rhythm converted back to atrial fibrillation. See nursing notes for dosages and times. There were no complications and the patient recovered uneventfully from the procedure. He was asymptomatic and hemodynamically stable at the conclusion of the procedure. Coding Level of Care Code Cardioversion, elective Additional Codes Electrical Cardioversion Report ([id number])
[2020-04-25] MEDS ORDERED: QUEtiapine FUMARATE 25 MG TABLET PO ONE (17:34)
[2020-04-26 07:26] LABS: Calcium 8.4 mg/dl (8.5-10.1); Creatinine Clr Calc Pharmacy 109.3 ml/min; Est GFR (African American) 104.2; Est GFR (Non-African American) 89.9
[2020-04-26] MEDS ORDERED: ROSUVASTATIN CALCIUM 20 MG TAB PO SCH (09:00)
[2020-04-26] MEDS ORDERED: lisinopriL 20 MG TAB PO SCH (09:00)
[2020-04-26] MEDS ORDERED: RIVAROXABAN 20 MG TAB PO SCH (09:00)
--- NOTE | 2020-04-26 09:56 | Discharge Summary ---
Date of Service April 26, 2020 Admission HPI Per Admitting Provider 64-year-old male with a past medical history of prostate cancer, hypertension and A. fib/flutter. He notes he has had about 3-4 episodes of A. fib a flutter before in the past. He notes he woke up this morning around 1 in the morning and noticed that his heart was racing. Last night before going to bed he was not in A. fib. He denies any chest pain or shortness of breath. No nausea vomiting or diarrhea. No dysuria urgency or frequency. No other exacerbating or remitting factors. He does take rivaroxaban has not missed any doses. He was in contact with his senior housekeeper who recommended him taking diltiazem and he took 240 mg ER. Patient had no relief with the Cardizem 240 presented to the ER with atrial flutter rapid ventricular response. Patient was placed on a diltiazem drip with some good reduction in his heart rate however remained in a flutter. I personally phoned Dr. Derrick Corbin and over the case with him and the decision was made to attempt to DC cardiovert the patient to resume sinus rhythm since he is chronically anticoagulated have patient go home. However the patient initially converted from flutter to atrial fibrillation and then from atrial fibrillation to sinus briefly but remained in atrial fibrillation with controlled ventricular rate. Because of the variability his heart rate controlled patient was recommended for observation of facility. Diltiazem drip was not continued with his Xarelto was. Patient with PRN metoprolol for elevation of heart rate Dr. Corbin did phone the patient's senior housekeeper and left a message. Per Dr. Corbin's instructions the patient may go home in the morning if heart rate is controlled whether he is in sinus rhythm or not with the exception is that if he returns a flutter that he should stay outside of his heart rate. If the patient has an elevated blood pressure and control heart rate whether sinus or A. fib heart is it may be a good choice to control his blood pressure. If the patient is in A. fib with controlled blood pressure metoprolol may be a better choice. If patient remains in atrial flutter he will likely have to stay for consideration of further antiarrhythmic medication cardiology consultation will be continued Principal Diagnosis a-fib/flutter Discharge Exam Constitutional WD/WN, vitals as above average body habitus and healthy appearing Eyes EOM intact bilaterally Neck normal visual inspection and trachea midline Respiratory normal respiratory effort, lungs clear to auscultation Cardiovascular RRR, no murmur, no edema Heart Sounds: normal S1 and normal S2 Gastrointestinal (Abdomen) normal bowel sounds, soft, nontender, no hepatosplenomegaly Neurologic awake Psychiatric A+Ox3, euthymic affect Discharge Data Allergies Allergy/AdvReac Type Severity Reaction Status Date / Time Iodinated Contrast Media Allergy Unknown . Verified 04/25/20 14:18 Consultations 04/25/20 13:48 ED Decision to Admit Stat 04/25/20 17:15 Consult Cardiology Routine Hospital Course (1) Atrial fibrillation with rapid ventricular response: Pt is a 64 yo who presented to the ER yesterday due to palpitations and heart racing. Pt states that he has a hx of afib/flutter and that he "knows when [he's] in it because [he's] in tune with the body." While in the hospital, he was evaluated by cardiology. Pt underwent cardioversion x2. About 30minutes after going to the floor, pt converted into sinus rhythm. He remained in sinus rhythm throughout the night. Today, patient denies any symptoms and he states that he would like to be d/c home. He specifically denies any chest pain, palpitations, tachycardia, dyspnea, nausea, vomiting, leg pain, or leg swelling. Patient has slept well and he is tolerating meals without any nausea or vomiting. He has ambulated to the bathroom without difficulty. Pt notes that he follows with cardiology regularly (Dr. Belcher in [place] and Dr. Corbin at [facility]) (2) Atrial flutter: (3) Hypertension: Total Time Total Time Spent Total Time Spent (In Minutes): See attending attestation Discharge Plan Discharge Items Patient Disposition: Home - Self-Care Reason For Visit: PAROXYSMAL AFLUTTER AFIB Discharge Diagnosis: atrial fibrillation/flutter post cardioversion Activity: Resume your previous activity Non-emergency contact: Primary Care Provider Call non-emergency contact if: you have any medication questions and your symptoms worsen Follow-up/Referrals: NICKOLAS FLORES M.D. [Primary Care Provider] - Diet: Heart Healthy Addtl Attending Provider Instructions: You came into the hospital with atrial fibrillation/flutter and were cardioverted two times. Last night, you converted back to normal sinus rhythm. Continue to follow up with your family doctor and your cardiologists. We did mention the mild sleep apnea per your reported prior sleep study. Please consider discussing this with you primary care doctor. Pending Studies at Discharge: No Stand-Alone Forms: My [facility], Smoking Cessation Medications and DC Order Prescriptions: Continued lisinopril 20 mg tablet 20 mg PO QAM RF: 0 rosuvastatin 40 mg tablet 40 mg PO QAM RF: 0 tadalafil 20 mg tablet 20 mg PO UD PRN (Reason: Erectile Dysfunction) RF: 0 Xarelto 20 mg tablet 20 mg PO QAM RF: 0 Discharge Orders: Discharge Order (Routine); Ordered 04/26/20 Ordered By: Gia Bennett Admission Data Admit Date/Time: 04/25/20 16:03 Attending Provider: Pratibha Dela Cruz Admit Provider: Jose Foote Primary Care Provider: NICKOLAS FLORES Other Providers: Jose Foote ; Chano Coribn Other Interventions: Discharge Summary Assessment (RN) Last Done: 04/26/20 10:48 Supervising Physician Co-Signing Physician Notes Resident Physician Supervision Note: I independently interviewed and examined the patient and verified the benavides history and physical, reviewed labs and image studies, discussed the case with the resident Dr. Bennett and agree with the findings and care plan.
--- NOTE | 2020-04-26 13:05 | Electrocardiogram Report ---
Test Reason : Blood Pressure : / mmHG Vent. Rate : 061 BPM Atrial Rate : 061 BPM P-R Int : 146 ms QRS Dur : 092 ms QT Int : 416 ms P-R-T Axes : 030 062 052 degrees QTc Int : 418 ms Sinus rhythm with occasional Premature ventricular complexes Possible Left atrial enlargement RSR' or QR pattern in V1 suggests right ventricular conduction delay Borderline ECG When compared with ECG of 25-APR-2020 15:26, Sinus rhythm has replaced Atrial fibrillation pvc's are new Confirmed by Tam Mccarty ([id number]) on 04/26/2020 1:04:59 PM Referred By: NO PCP Confirmed By:Tam Mccarty
--- NOTE | 2020-04-26 13:25 | Electrocardiogram Report ---
Test Reason : Blood Pressure : / mmHG Vent. Rate : 054 BPM Atrial Rate : 054 BPM P-R Int : 156 ms QRS Dur : 096 ms QT Int : 444 ms P-R-T Axes : 038 -13 002 degrees QTc Int : 421 ms Sinus bradycardia RSR' or QR pattern in V1 suggests right ventricular conduction delay Moderate voltage criteria for LVH, may be normal variant Early repolarization When compared with ECG of 25-APR-2020 19:01, (unconfirmed) Premature ventricular complexes are no longer Present Questionable change in QRS axis T wave inversion now evident in Inferior leads Confirmed by Tam Mccarty ([id number]) on 04/26/2020 1:25:31 PM Referred By: NO PCP Confirmed By:Tam Mccarty
== END 2020-04-26 11:40 | disposition home or self-care (01) ==
LOC: 2S 11:43 → ED 11:43 → SUATTDRO 16:03 → 2S 16:45